=== PATIENT | female | born 1980 | race Caucasian/White ===

== ENCOUNTER 2018-08-13 08:55 | Emergency (ER) | payer OTHER ==
[~2018-08-13] VITALS: Ht 165.1 cm; Wt 76.2 kg
[~2018-08-13 08:55] MED LIST: PLAQUENIL; PREDNISONE10 MG; TUSSIONEX PENNKI5 ML PO
[2018-08-13] MEDS ORDERED: CLEOCIN HCL300 MG (09:11)
[2018-08-13] MEDS ORDERED: METHOTREXATE2.5 MG (09:12)
[2018-08-13] MEDS ORDERED: THALOMID100 MG (09:13)
[2018-08-13] MEDS ORDERED: CLONAZEPAM2 M1 (09:14)
== END 2018-08-13 10:23 | disposition home or self-care (01) ==
LOC: ER 08:55
DX: L03.116 Cellulitis of left lower limb (principal)

== ENCOUNTER 2019-02-02 20:21 | Emergency (ER) | payer OTHER ==
[~2019-02-02] VITALS: Ht 165.1 cm; Wt 74.8 kg
[~2019-02-02 20:21] MED LIST changes: +CLEOCIN HCL300 MG; +CLONAZEPAM2 M1; +METHOTREXATE2.5 MG; +THALOMID100 MG
[2019-02-02] MEDS ORDERED: IRBESARTAN150 MG (21:18)
== END 2019-02-03 10:31 | disposition home or self-care (01) ==
LOC: ER 20:21
DX: R51 Headache (principal); R11.2 Nausea with vomiting, unspecified

== ENCOUNTER 2019-02-05 10:18 | Emergency (ER) | payer OTHER ==
[~2019-02-05] VITALS: Ht 165.1 cm; Wt 74.8 kg
[~2019-02-05 10:18] MED LIST changes: +IRBESARTAN150 MG
[2019-02-05] MEDS ORDERED: XARELTO20 MG PO (10:44)
[2019-02-05] MEDS ORDERED: HYDROXYCHLOROQ200 MG PO (10:45)
[2019-02-05] MEDS ORDERED: TOPROL XL50 M1 PO (10:46)
== END 2019-02-05 14:07 | disposition home or self-care (01) ==
LOC: ER 10:18
DX: L29.8 Other pruritus (principal); T78.49XA Other allergy, initial encounter; X58.XXXA Exposure to other specified factors, initial encounter

== ENCOUNTER 2020-10-26 15:20 | Emergency (ER) | payer OTHER ==
[~2020-10-26] VITALS: Ht 165.1 cm; Wt 70.3 kg
[~2020-10-26 15:20] MED LIST changes: +HYDROXYCHLOROQ200 MG PO; +TOPROL XL50 M1 PO; +XARELTO20 MG PO
== END 2020-10-26 19:41 | disposition home or self-care (01) ==
LOC: ER 15:20
DX: F06.4 Anxiety disorder due to known physiological condition (principal)

== ENCOUNTER 2021-03-23 08:18 | Outpatient (CLI) | payer OTHER | END 2021-03-23 08:22 | disposition home or self-care (01) | LOC: MRI 08:18 | PROVIDERS: ATTEND Obstetrics & Gynecology Gynecologic Oncology | DX: D26.7 Other benign neoplasm of other parts of uterus (principal) | CPT/HCPCS: 72197; A9575 ==

== ENCOUNTER 2021-04-20 07:00 | Inpatient (IN) | payer OTHER ==
[~2021-04-20] VITALS: Ht 165.1 cm; Wt 77.1 kg
[2021-04-20] MEDS ORDERED: PLAQUENIL PO (09:23)
[2021-04-22] MEDS ORDERED: HYDROXYCHLOROQ200 MG (07:52)
[2021-04-22] MEDS ORDERED: FUROSEMIDE40 MG (07:52)
[2021-04-22] MEDS ORDERED: FOLIC ACID1 MG (07:52)
== END 2021-04-23 12:38 | disposition home or self-care (01) | DRG 743 ==
LOC: ADM 07:00 → EDSTATUS 07:00 → O/R 04-22 06:00 → OB/GYN 04-22 06:00 → SURH 04-22 07:00 → OB/GYN 04-22 10:54
PROVIDERS: ADMIT Obstetrics & Gynecology Gynecologic Oncology; ATTEND Obstetrics & Gynecology Gynecologic Oncology
PROC: 0UT24ZZ Resection of Bilateral Ovaries, Percutaneous Endoscopic Approach (ICD-10-PCS; 2021-04-22)
PROC: 0UT74ZZ Resection of Bilateral Fallopian Tubes, Percutaneous Endoscopic Approach (ICD-10-PCS; 2021-04-22)
PROC: 0DNW4ZZ Release Peritoneum, Percutaneous Endoscopic Approach (ICD-10-PCS; 2021-04-22)
PROC: 0UT94ZZ Resection of Uterus, Percutaneous Endoscopic Approach (ICD-10-PCS; principal; 2021-04-22 10:15)
DX: N80.0 Endometriosis of uterus (principal); Z20.822 Contact with and (suspected) exposure to COVID-19; N72 Inflammatory disease of cervix uteri

== ENCOUNTER 2021-12-07 22:34 | Emergency (ER) | payer OTHER ==
[~2021-12-07] VITALS: Ht 165.1 cm; Wt 81.6 kg
[~2021-12-07 22:34] MED LIST changes: +FOLIC ACID1 MG; +FUROSEMIDE40 MG; +HYDROXYCHLOROQ200 MG; +PLAQUENIL PO
== END 2021-12-07 23:46 | disposition home or self-care (01) ==
LOC: ER 22:34
DX: S80.12XA Contusion of left lower leg, initial encounter (principal); D68.9 Coagulation defect, unspecified; I73.9 Peripheral vascular disease, unspecified; Z88.6 Allergy status to analgesic agent; Z86.72 Personal history of thrombophlebitis; Z79.01 Long term (current) use of anticoagulants

== ENCOUNTER 2021-12-08 13:41 | Outpatient (CLI) | payer OTHER | END 2021-12-08 13:42 | disposition home or self-care (01) | LOC: NUCLEAR 13:41 | PROVIDERS: ATTEND Emergency Medicine | DX: I73.9 Peripheral vascular disease, unspecified (principal); Z88.6 Allergy status to analgesic agent ==

== ENCOUNTER → 2022-07-03 | Emergency (ER) | payer OTHER ==
[~2022-07-03] VITALS: Ht 165.1 cm; Wt 68.0 kg
== END | disposition home or self-care (01) ==
LOC: ER 00:34
DX: L03.116 Cellulitis of left lower limb (principal); Z88.6 Allergy status to analgesic agent